=== PATIENT | male | born 1960 | race Caucasian/White ===

== ENCOUNTER 2016-05-01 17:44 | Emergency (ER) | payer OTHER ==
[~2016-05-01] VITALS: Ht 185.4 cm; Wt 110.0 kg
[2016-05-01 17:46] VITALS: BP 148/94; PULSE 68; RESP 20; TEMP 98.1; O2SAT 96
--- NOTE | 2016-05-01 18:08 | PD ---
HPI Chief Complaint: Pain: Acute or Chronic Time Seen by Provider: 18:06 Travel History International Travel<30 days: No Contact w/Intl Traveler<30days: No Traveled to known affect area: No History of Present Illness HPI 55-year-old male presents to the emergency department for evaluation of left shoulder pain since Wednesday, 3 days ago. He denies traumatic injury. He is able to point to specific area on the left lateral shoulder where the pain is. He reports the pain is exacerbated by movement of the left arm. He denies any loss of sensation. He denies any prior history of shoulder pain. He denies any chest pain or shortness of breath. No fevers or chills. He has taken Tylenol at home with no improvement. He denies any other complaints. He has no chronic medical problems and takes no prescribed medications. COUNTS INCLUDE 234 BEDS AT THE [facility] Social History Alcohol Use: No Tobacco Use: No Substance Use: No Allergies-Medications (Allergen,Severity, Reaction): Coded Allergies: No Known Allergies (Unverified , 05/01/16) Reported Meds & Prescriptions Reported Meds & Active Scripts Active Robaxin (Methocarbamol) 750 Mg Tab 750 Mg PO TID PRN Diclofenac Potassium 50 Mg Tab 50 Mg PO TID PRN Review of Systems Except as stated in HPI: all other systems reviewed are Neg Physical Exam Narrative GENERAL: Well-developed well-nourished male patient, ambulatory. Afebrile. SKIN: Warm and dry. No erythema or warmth noted over left shoulder. HEAD: Normocephalic. Atraumatic. EYES: No scleral icterus. No injection or drainage. NECK: Supple, trachea midline. No JVD or lymphadenopathy. CARDIOVASCULAR: Regular rate and rhythm without murmurs, gallops, or rubs. Left radial pulse 2+. RESPIRATORY: Breath sounds equal bilaterally. No accessory muscle use. Lungs sounds are clear to auscultation. GASTROINTESTINAL: Abdomen soft, non-tender, nondistended. MUSCULOSKELETAL: No cyanosis, or edema. Patient has tenderness over left lateral shoulder. He has exacerbated pain with movement of the left shoulder. Patient has a normal grasp strength in the left hand. BACK: Nontender without obvious deformity. No CVA tenderness. Data Data Last Documented VS Vital Signs Date Time Temp Pulse Resp B/P Pulse Ox O2 Delivery O2 Flow Rate FiO2 05/01/16 17:46 98.1 68 20 148/94 96 Room Air Orders Ibuprofen (Motrin) (05/01/16 18:15) Methocarbamol (Robaxin) (05/01/16 18:15) Shoulder, Complete (>2vws) (05/01/16 ) [facility] Medical Decision Making Medical Screen Exam Complete: Yes Emergency Medical Condition: Yes Medical Record Reviewed: Yes Interpretation(s) left shoulder x-ray - no acute fracture or dislocation Differential Diagnosis Muscle strain versus rotator cuff injury versus tendinitis versus fracture versus dislocation Narrative Course 55-year-old male presents to the emergency department for evaluation of left shoulder pain for 3 days without traumatic injury. The pain is easily reproducible with palpation and movement. X-ray of the left shoulder is ordered and pending. X-ray of the left shoulder shows no acute abnormality. He is stable for discharge. He will be discharged with a prescription for diclofenac and Robaxin. He is to follow up with an orthopedist. Diagnosis Primary Impression: Shoulder pain, acute Qualified Code: M25.512 - Acute pain of left shoulder Referrals: Orthopedist call for appointment Patient Instructions: General Instructions, Shoulder Pain (ED) Additional Instructions: Take Diclofenac as directed as needed with food for pain. Take Robaxin as directed as needed. Ice for 20 mins 4-5 times daily. Follow up with an orthopedist. Return to the emergency department for any acute, worsening of symptoms. Med/Other Pt SpecificInfo: Prescription(s) given Scripts Methocarbamol (Robaxin)750 Mg [id number] Mg PO TID PRN (MUSCLE SPASM) #21 TAB Ref 0 Prov:Oliva Garcia 05/01/16 Diclofenac Potassium 50 Mg Tab50 Mg PO TID PRN (PAIN SCALE 1 TO 10) #21 TAB Ref 0 Prov:Oliva Garcia 05/01/16 Disposition: 01 DISCHARGE HOME Condition: Stable Oliva Garcia May 01, 2016 18:08
[2016-05-01] MEDS ORDERED: IBUPROFEN 800 MG TAB PO ONE (18:15)
[2016-05-01] MEDS ORDERED: METHOCARBAMOL 500 MG TAB PO ONE (18:15)
[2016-05-01] MEDS ORDERED: DICL50TA PO (18:40)
[2016-05-01] MEDS ORDERED: ROBA750T PO (18:40)
--- NOTE | 2016-05-01 19:03 | RADRPT ---
EXAM DATE/TIME: 05/01/2016 18:15 [facility] COMPARISON: No previous studies available for comparison. INDICATIONS : Left arm pain. MEDICAL HISTORY : None. SURGICAL HISTORY : None. ENCOUNTER: Initial ACUITY: 3 days PAIN SCORE: 7/10 LOCATION: Left lateral shoulder FINDINGS: Glenohumeral and acromioclavicular joints are normally aligned. No fracture is seen. There does appea r to be some faint calcifications seen lateral to the humeral head. CONCLUSION: Faint calcification lateral to the humeral head which may be secondary to processes s uch as calcific tendonitis or calcium hydroxyapatite deposition. Walt Smith MD on May 01, 2016 at 18:56 Board Certified Radiologist. This report was verified electronically.
== END 2016-05-01 19:05 | disposition home or self-care (01) ==
LOC: NEPB 17:44
DX: M25.512 Pain in left shoulder (principal)
CPT/HCPCS: 73030; 99283